=== PATIENT | male | born 1980 | race Caucasian/White ===

== ENCOUNTER 2017-09-28 10:07 | Emergency (ER) | payer BC, SELFPAY ==
[2017-09-28 10:23] VITALS: BP 142/88; PULSE 98; RESP 18; TEMP 36.8; O2SAT 98; BMI 31.6
--- NOTE | 2017-09-28 10:35 | HMH.EDUTC ---
[facility] [place] Disposition Clinical Impression: Dental abscess Disposition: Home, Self-Care Condition on Discharge: Good Instructions: Tooth Abscess, Tooth Fracture, DI for Fractured Tooth Additional Instructions: Tomorrow call dentist and get an appointment and be sure to tell them that you are currently on antibiotic for dental abcess Over the counter Motrin or Tylenol as needed for fever or pain Warm compresses to the area may help with swelling and pain Return if needed FOllow up with family doctor if worsening of symptoms, swelling or pain Go straight to ER if worsening of symptoms or any signs of reaction to medication Prescriptions: Penicillin V Potassium 500 mg PO Q6H #28 tab Referrals: Glenn Bradley [Referring] - Time of Disposition: 10:51 Medical Decision Making - Medical Records Medical records reviewed: Yes: I reviewed the patient's medical records. Vital Signs: 09/28/17 10:23 Temperature 98.2 F Temperature Source Temporal Artery Scan Pulse Rate [Right Brachial] 98 H Respiratory Rate 18 Blood Pressure [Right Arm] 142/88 Blood Pressure Mean [Right Arm] 106 Blood Pressure Source [Right Arm] Automatic Cuff Blood Pressure Position [Right Arm] Sitting 02 Sat by Pulse Oximetry 98 Oxygen Delivery Method Room Air - Michel Inquiry Pt receiving controlled substance: No Michel was queried for this patient: No [facility] [place] HPI - General Stated complaint: Jaw Swollen Mode of Arrival: Family Vehicle Source of Information: Patient Limitations: No Limitations Description of Symptoms (Recalled from Triage Doc. by RN): C/O RIGHT SIDED JAW SWELLING HEENT Symptoms (Recalled from RN notes): Yes (RIGHT JAW SWOLLEN) Resp Symptoms (Recalled from RN notes): No Skin Symptoms (Recalled from RN notes): No MS Symptoms (Recalled from RN notes): No Functional Status (Recalled from RN notes): N/A - History of Present Illness Provider Complaint: Patient state that he has been having pain in his back tooth on his right lower jaw State that recently he cracked the tooth and not had time to go get it fixed State that yesterday he was out in the cold all day and then this morning he woke up with the right side of his lower jaw swollen and thinks he may have an abcessed tooth - Related Data Previous Rx's Medication Instructions Recorded Penicillin V Potassium 500 mg PO Q6H #28 tab 09/28/17 Allergies Allergy/AdvReac Type Severity Reaction Status Date / Time No Known Allergies Allergy Verified 09/28/17 10:31 - Worker's Comp Is this a Worker's Comp case?: No [facility] History I have reviewed the patient's past medical history: Yes - Social History Alcohol Intake: never - Psychiatric History Expresses thoughts of harming self/others: None Suicide Plan Description: No Plan ROS Obtained: Yes All systems reviewed & no additional complaints - ENT Ears, Nose, Mouth, and Throat: Reports dental pain Physical Exam - General General appearance: alert, in no apparent distress - Expanded ENT Exam Teeth exam: Present: fractured tooth #, other 1 - Fractured, Dental Tenderness, Other (gum red, swollen like seen with abcess) Comment: Swelling of lower jaw area around area of fracture teeth, redness and tenderness noted in gum - Respiratory Respiratory exam: Present: normal lung sounds bilaterally. Absent: respiratory distress - Cardiovascular Cardiovascular exam: Present: regular rate, normal rhythm. Absent: JVD - Neurological Exam Neurological exam: Present: alert, oriented X3
--- NOTE | 2017-09-28 10:42 | ED_ITS ---
[facility] [place] Disposition Clinical Impression: Dental abscess Disposition: Home, Self-Care Condition on Discharge: Good Instructions: Tooth Abscess, Tooth Fracture, DI for Fractured Tooth Additional Instructions: Tomorrow call dentist and get an appointment and be sure to tell them that you are currently on antibiotic for dental abcess Over the counter Motrin or Tylenol as needed for fever or pain Warm compresses to the area may help with swelling and pain Return if needed FOllow up with family doctor if worsening of symptoms, swelling or pain Go straight to ER if worsening of symptoms or any signs of reaction to medication Prescriptions: Penicillin V Potassium 500 mg PO Q6H #28 tab Referrals: Glenn Bradley [Referring] - Time of Disposition: 10:51 Medical Decision Making - Medical Records Medical records reviewed: Yes: I reviewed the patient's medical records. Vital Signs: 09/28/17 10:23 Temperature 98.2 F Temperature Source Temporal Artery Scan Pulse Rate [Right Brachial] 98 H Respiratory Rate 18 Blood Pressure [Right Arm] 142/88 Blood Pressure Mean [Right Arm] 106 Blood Pressure Source [Right Arm] Automatic Cuff Blood Pressure Position [Right Arm] Sitting 02 Sat by Pulse Oximetry 98 Oxygen Delivery Method Room Air - Michel Inquiry Pt receiving controlled substance: No Michel was queried for this patient: No [facility] [place] HPI - General Stated complaint: Jaw Swollen Mode of Arrival: Family Vehicle Source of Information: Patient Limitations: No Limitations Description of Symptoms (Recalled from Triage Doc. by RN): C/O RIGHT SIDED JAW SWELLING HEENT Symptoms (Recalled from RN notes): Yes (RIGHT JAW SWOLLEN) Resp Symptoms (Recalled from RN notes): No Skin Symptoms (Recalled from RN notes): No MS Symptoms (Recalled from RN notes): No Functional Status (Recalled from RN notes): N/A - History of Present Illness Provider Complaint: Patient state that he has been having pain in his back tooth on his right lower jaw State that recently he cracked the tooth and not had time to go get it fixed State that yesterday he was out in the cold all day and then this morning he woke up with the right side of his lower jaw swollen and thinks he may have an abcessed tooth - Related Data Previous Rx's Medication Instructions Recorded Penicillin V Potassium 500 mg PO Q6H #28 tab 09/28/17 Allergies Allergy/AdvReac Type Severity Reaction Status Date / Time No Known Allergies Allergy Verified 09/28/17 10:31 - Worker's Comp Is this a Worker's Comp case?: No [facility] History I have reviewed the patient's past medical history: Yes - Social History Alcohol Intake: never - Psychiatric History Expresses thoughts of harming self/others: None Suicide Plan Description: No Plan ROS Obtained: Yes All systems reviewed & no additional complaints - ENT Ears, Nose, Mouth, and Throat: Reports dental pain Physical Exam - General General appearance: alert, in no apparent distress - Expanded ENT Exam Teeth exam: Present: fractured tooth #, other 1 - Fractured, Dental Tenderness, Other (gum red, swollen like seen with abcess ) Comment: Swelling of lower jaw area around area of fracture teeth, redness and tenderness noted in gum
[2017-09-28 10:53] VITALS: BP 138/86; PULSE 90; RESP 20; TEMP 36.8; O2SAT 98
== END 2017-09-28 10:54 | disposition home or self-care (01) ==
PROVIDERS: Emergency Provider Nurse Practitioner
DX: K04.7 Periapical abscess without sinus (principal)
CPT/HCPCS: 99202